=== PATIENT | female | born 1975 | race Caucasian/White ===

== ENCOUNTER 2018-05-06 04:29 | Emergency (ER) | payer OTHER ==
[~2018-05-06] VITALS: Ht 170.2 cm; Wt 70.5 kg
[2018-05-06] MEDS ORDERED: DULO20CA30 PO (04:43)
[2018-05-06] MEDS ORDERED: BUPR75 PO (04:43)
[2018-05-06] MEDS ORDERED: CLON1 PO (04:43)
[2018-05-06] MEDS ORDERED: ZIPR20CA2 PO (04:43)
[2018-05-06] MEDS ORDERED: IBUPROFEN 600 MG TABLET PO ONE (06:45)
[2018-05-06] MEDS ORDERED: CYCLOBENZAPRINE HCL 10 MG TABLET PO ONE (06:45)
[2018-05-06 07:51] VITALS: BP 99/61
== END 2018-05-06 08:45 | disposition home or self-care (01) ==
LOC: EMS 04:29
DX: F32.9 Major depressive disorder, single episode, unspecified (principal); G89.29 Other chronic pain; M54.9 Dorsalgia, unspecified; M79.7 Fibromyalgia; F43.10 Post-traumatic stress disorder, unspecified; Z79.899 Other long term (current) drug therapy; Z88.0 Allergy status to penicillin; Z86.711 Personal history of pulmonary embolism